=== PATIENT | female | born 1990 | race Caucasian/White ===

== ENCOUNTER 2020-01-14 14:03 | Emergency (ER) | payer OTHER, SELFPAY ==
--- NOTE | 2020-01-14 14:07 | CTR_ITS ---
PROCEDURE INFORMATION: Exam: CT Abdomen And Pelvis With Contrast Exam date and time: 01/14/2020 4:25 PM Age: 29 years old Clinical indication: Abdominal pain; Localized; Right upper quadrant (ruq); Patient HX: Ruq pain w n/v/d; Additional info: Abd pain TECHNIQUE: Imaging protocol: Computed tomography of the abdomen and pelvis with intravenous contrast. Radiation optimization: All CT scans at this facility use at least one of these dose optimization techniques: automated exposure control; mA and/or kV adjustment per patient size (includes targeted exams where dose is matched to clinical indication); or iterative reconstruction. Contrast material: OMNI 300; Contrast volume: 95 ml; Contrast route: INTRAVENOUS (IV); COMPARISON: No relevant prior studies available. RADIATION DOSE METRICS: Total DLP (mGy-cm): 1082.09 FINDINGS: Lungs: There are least 6 small noncalcified pulmonary nodules at the lung bases mostly measuring around 5 mm size and the largest is approximately 8 mm. If patient does not have known cancer, follow up should be based on clinical information because of the low risk of cancer in this age group. (Lida et al., Fleischner Society, 2017) Liver: There is no focal abnormality within the liver. Gallbladder and bile ducts: The gallbladder is normal. Pancreas: The pancreas is normal. Spleen: The spleen is normal. Adrenals: The adrenal glands are normal. Kidneys and ureters: There is mild right hydronephrosis. There is perinephric stranding around the right kidney and proximal right ureter. There is mild right hydroureter. There is some focal mucosal enhancement in the mid right ureter one could not exclude some focal ureteritis or urinary tract infection. Correlation with clinical findings is suggested. There is a 5 mm sized stone in the distal right ureter. This measures approximately 500 Hounsfield units and may be visible on the optoelectronic technician image. The left kidney is normal. There is no evidence of left hydronephrosis. Stomach and bowel: Unremarkable. No obstruction. No mucosal thickening. Appendix: A normal appendix is identified. Intraperitoneal space: Unremarkable. No free air. No significant fluid collection. Vasculature: Unremarkable. No abdominal aortic aneurysm. Lymph nodes: Unremarkable. No enlarged lymph nodes. Bladder: Unremarkable as visualized. Reproductive: Unremarkable as visualized. Bones/joints: Unremarkable. No acute fracture. Soft tissues: Unremarkable. CT/CT abdomen pelvis w con* [id number] IMPRESSION: 1. 5 mm size obstructing stone in the distal right ureter. 2. Urinary tract infection cannot be excluded. Radiation Dose CTDIVOL = (mGy): DLP = 1082.09 (mGy-cm)
[2020-01-14 14:19] VITALS: BP 106/73; PULSE 76; RESP 17; TEMP 37; O2SAT 99; BMI 32.9
--- NOTE | 2020-01-14 14:58 | W.ED.ABDPA2 ---
HPI - Abdominal Pain General: Chief Complaint: Abdominal Pain Stated Complaint: abd pain Time Seen by Provider: 01/14/20 14:53 History of Present Illness: HPI narrative: 29-year-old female brought to the emergency room from her doctor's office. She was seen earlier today and the doctors of the been trying to arrange for a CT as an outpatient were not able to get it approved she has worsening abdominal pain in the right lower quadrant. She had an elevated white count of 16,000. She is currently on her period itself towards the end of her. She has not had any dysuria urgency or frequency no right upper quadrant pain she has had nephrolithiasis in the past but states this feels different and it does not radiate down into her groin it began earlier today in the right lower quadrant is pretty much stayed in the same place the whole time. She has a history of chronic constipation but states this feels different. MD elicited complaint: abdominal pain Pertinent past history: constipation and kidney stones Onset (ago): hour(s) Pain Consistency: constant Location: RLQ Severity: moderate Quality: cramping Associated Symptoms: Denies bloating, chills, coffee ground emesis, constipation, diarrhea, dysuria, fever(s), hematochezia, hematemesis, melena, nausea and vomiting Review of Systems Const: Denies: fever(s), chills, body aches, change in appetite, fatigue or malaise ENMT: Denies: throat pain, ear or mastoid pain, nasal discharge or nasal congestion Card: Denies: chest pain, edema, dyspnea on exertion or orthopnea Resp: Denies: dyspnea, productive cough or non-productive cough GI: Denies: abdominal pain, nausea, vomiting, hematemesis, coffee ground emesis, diarrhea, constipation, bloating, hematochezia or melena : Denies: flank pain, difficulty voiding, dysuria, urinary frequency or urinary urgency Skin/Breast: Denies: rash or pruritus PFSH ED PFSH: Medical History (Updated 01/14/20 @ 17:48 by Ankit Castano DO) Constipation Migraines Nephrolithiasis Surgical History (Updated 01/14/20 @ 15:28 by Ankit Castano DO) No significant past surgical history Physical Exam Const: COMMON NORMALS: no acute distress GENERAL APPEARANCE: cooperative and comfortable ORIENTATION/CONSCIOUSNESS: Yes awake, Yes oriented to person, Yes oriented to place and Yes oriented to time HENMT: COMMON NORMALS: normocephalic, atraumatic, hearing grossly normal bilaterally, external ears normal, EAC's normal, TM's normal bilaterally, Normal nasal mucous membranes and turbinates present, moist oral mucous membranes and oropharynx normal HEAD & SCALP: normocephalic and atraumatic NOSE: Normal nasal mucous membranes and turbinates present EXTERNAL EAR: Yes external ears normal EXTERNAL AUDITORY CANAL: EAC's normal TYMPANIC MEMBRANE: TM's normal bilaterally Eye: COMMON NORMALS: Equal, round and reactive pupils present, EOMs intact bilaterally, conjunctivae normal and no scleral icterus CONJUNCTIVA: Yes conjunctivae normal PUPIL: Yes Equal, round and reactive pupils present Neck/C-Spine: COMMON NORMALS: full ROM, no lymphadenopathy, supple and no JVD Lymph: LYMPHATIC: no lymphadenopathy noted and no lymphedema noted Resp: COMMON NORMALS: normal respiratory effort, No retractions, No use of accessory muscles and clear to auscultation bilaterally AUSCULTATION: clear to auscultation bilaterally Cardio: COMMON NORMALS: no JVD, regular rate, regular rhythm and No murmurs present (Cardio) RATE: regular rate RHYTHM: regular rhythm GI: COMMON NORMALS: Soft to palpation and No hepatosplenomegaly present AUSCULTATION: Yes normoactive bowel sounds PALPATION: Yes Soft to palpation, No Tenderness to palpation present (GI), No Guarding due to palpation present (GI) and Yes No hepatosplenomegaly present Extremity: COMMON NORMALS: normal to inspection, capillary refill normal, no clubbing, cyanosis or edema, no calf tenderness and no pedal edema Neuro: SENSORIUM/ORIENTATION: Yes oriented to person, Yes oriented to place and Yes oriented to time Skin: COMMON NORMALS: no rashes or lesions noted GENERAL SKIN EXAM: no rashes or lesions noted Course Vital Signs: Vital signs: Vital Signs Temperature 98.6 F 01/14/20 14:19 Pulse Rate 76 01/14/20 14:19 Respiratory Rate 18 01/14/20 15:34 Blood Pressure 106/73 01/14/20 14:19 Pulse Oximetry 99 01/14/20 14:19 MDM - Abdominal Pain MDM Narrative: Medical decision making narrative: 5 mm right UVJ stone. Strain urine, follow-up with Dr. Cowart. Tamsulosin hydrocodone Zofran PRN if pain becomes controllable return. Discussed results with the patient she is sitting comfortably in the room without any difficulty now Case management will call to follow-up appointment with Dr. Cowart. Lab Data: Labs: Lab Results 01/14/20 01/14/20 01/14/20 Range/Units 14:55 15:10 15:10 Sodium 143 (136-145) mmol/L Potassium 3.5 (3.5-5.1) mmol/L Chloride 110 H (98-107) mmol/L Carbon Dioxide 23 (22-29) mmol/L Anion Gap 13.5 (5-19) BUN 16 (6-20) mg/dL Creatinine 0.8 (0.5-0.9) mg/dL GFR Calculation 83.7 L (90-130) mL/min Glucose 96 (65-115) mg/dL Calculated Osmolal ity 292 (285-295) mOsm/k g Calcium 9.0 (8.5-10.5) mg/dL Total Bilirubin 0.3 (0.15-1.2) mg/dL AST 12 (0-32) U/L ALT 7 (0-33) U/L Alkaline Phosphata se 63 (35-105) IU/L Total Protein 7.1 (6.6-8.7) g/dL Albumin 4.3 (3.5-5.2) g/dL Globulin 2.8 (1.3-4.6) g/dL Lipase 30 (13-60) U/L HCG, Qual Negative (Negative) Urine Color Mikala (Yellow) Urine Appearance Hazy A (CLEAR) Urine pH 5 (5-7) Ur Specific Gravit y 1.020 (1.005-1.030) Urine Protein Neg (Negative) Urine Glucose (UA) Norm (Normal) Urine Ketones Negative (Negative) Urine Blood 3+ H (Negative) Urine Nitrate Positive H (Negative) Urine Bilirubin Neg (NEGATIVE) Urine Urobilinogen Norm (Negative) mg/dL Ur Leukocyte Alysa ase 1+ H (Negative) Urine RBC 25-40 H (0-2) /hpf Urine WBC 15-25 H (0-5) /hpf Ur Squamous Epith Cells 5-10 H (0-5) Amorphous Sediment Not Reportable Urine Bacteria 4+ H (NONE) Discharge Plan Discharge Patient Disposition: Home, Self-Care Clinical Impression: Calculus of kidney Condition: Stable Prescriptions: New hydrocodone-acetaminophen 5-325 mg tablet 1 tab PO Q6H PRN (Reason: pain) Qty: 20 RF: 0 Zofran 4 mg tablet 4 mg PO Q6H PRN (Reason: nausea and vomiting) Qty: 20 RF: 0 tamsulosin 0.4 mg capsule 0.4 mg PO DAILY Qty: 14 RF: 0 No Action ibuprofen 800 mg tablet 800 mg PO TID PRN (Reason: Pain) RF: 0 prednisone 20 mg tablet 20 mg PO DAILY RF: 0 clonazepam 0.5 mg tablet 0.5 mg PO BID PRN (Reason: Anxiety) RF: 0 triamcinolone acetonide 0.1 % cream See Rx Instructions .ROUTE .COMPLEX RF: 0 topiramate 200 mg tablet 200 mg PO BID RF: 0 Discharge Orders: Discharge Order (Routine); Ordered 01/14/20 Ordered By: Ankit Castano Referrals: Herb Cowart MD [Physician] - (5 mm right UVJ stone) Discharge Diet: Advance as tolerated Discharge Activity: Resume usual activity Activity Restrictions/Additional Instructions: Strain urine to collect stone return to the lab if collected. Case management will call for follow-up with Dr. Cowart for stone management. Coding Level of Care Code ED Plant Culture Manager for [facility] Fwd Exam Comprehensive
[2020-01-14 15:08] VITALS: RESP 18
[2020-01-14] MEDS: ondansetron 2 mg/ML SDV 2 mL 4 MG IVP (15:33)
[2020-01-14 15:34] VITALS: RESP 18
[2020-01-14] MEDS: morphine 4 mg/mL SDV 1 mL IVP (15:34)
[2020-01-14 15:35] LABS: Alanine Aminotransferase 7 U/L (0-33); Albumin Level 4.3 g/dL (3.5-5.2); Alkaline Phosphatase 63 IU/L (35-105); Anion Gap 13.5 (5-19); Aspartate Amino Transferase 12 U/L (0-32); Blood Urea Nitrogen 16 mg/dL (6-20); Carbon Dioxide 23 mmol/L (22-29); Chloride 110 mmol/L (98-107); Globulin 2.8 g/dL (1.3-4.6); Glomerular Filtration Rate 83.7 mL/min (90-130); Glucose 96 mg/dL (65-115); Lipase 30 U/L (13-60); Osmolality Calculated 292 mOsm/kg (285-295); Potassium 3.5 mmol/L (3.5-5.1); Sodium 143 mmol/L (136-145); Total Bilirubin 0.3 mg/dL (0.15-1.2); Total Protein 7.1 g/dL (6.6-8.7)
[2020-01-14] MEDS: sodium chloride 0.9% 1,000 ML 999 ML IV (15:35)
[2020-01-14 15:41] LABS: HCG Qualitative Urine. Negative (Negative)
[2020-01-14 15:43] LABS: Add Urine Microscopic? YES; Bilirubin Urine Neg (NEGATIVE); Blood Urine 3+ (Negative); Glucose Urine UA Norm (Normal); Ketones Urine Negative (Negative); Leukocyte Esterase Urine 1+ (Negative); Nitrate Urine Positive (Negative); Protein Urine Neg (Negative); Urine Appearance Hazy (CLEAR); Urine Color Amber (Yellow); Urobilinogen Urine Norm (Negative); pH Urine 5 (5-7)
[2020-01-14 15:44] LABS: Add Urine Culture? Yes; Bacteria Urine 4+; RBC Urine 25-40 /hpf (0-2); WBC Urine 15-25 /hpf (0-5)
[2020-01-14 16:08] VITALS: RESP 18
[2020-01-14] MEDS: iohexol 300 mg/mL 100 mL Btl IV (16:35)
[2020-01-14 17:00] VITALS: RESP 18
[2020-01-14 18:00] VITALS: RESP 18
--- NOTE | 2020-01-15 12:28 | DCPLANNER ---
manager library had message to schedule a follow up appointment for patient with Dr. Cowart. manager library called the office of Dr. Cowart, spoke with Sandra, gave clinic patients information. manager library was told that patients information would be printed and reviewed. Clinic will call patient with appointment information.
--- NOTE | 2020-01-17 08:36 | DCPLANNER ---
Patient had a follow up appointment scheduled for 01.16.20, patient did attend the appointment.
== END 2020-01-14 18:12 | disposition home or self-care (01) ==
PROVIDERS: Emergency Medicine; Emergency Provider Family Medicine; PCP Family Medicine
DX: N20.0 Calculus of kidney (principal)
CPT/HCPCS: 12345; 36415; 74177; 80053; 81001; 81003; 81025; 83690; 87077; 87086; 87186; 96360; 96361; 96374; 96375; 99283; J2270; J2405; J7030; Q9967

== ENCOUNTER 2020-01-16 15:13 | Outpatient (CLI) | payer OTHER, SELFPAY ==
--- NOTE | 2020-01-16 15:25 | XRR_ITS ---
PROCEDURE INFORMATION: Exam: XR Abdomen, 1 View Exam date and time: 01/16/2020 3:25 PM Age: 29 years old Clinical indication: Condition or disease; Kidney or ureter condition; Calculus (stone) in ureter; Additional info: Stone in right ureter f/u TECHNIQUE: Imaging protocol: XR of the abdomen. Views: Frontal supine view of the abdomen. 1 View. COMPARISON: CT abdomen pelvis w con* [id number] 01/14/2020 4:26 PM FINDINGS: Gastrointestinal tract: Normal. No bowel dilation. There is moderate colonic fecal stasis involving the transverse and proximal descending colon. The exam does not show bowel obstruction or fecal impaction. Bones/joints: Unremarkable. XR/XR KUB [id number] IMPRESSION: No acute GI abnormality.
== END 2020-01-16 15:14 | disposition home or self-care (01) ==
LOC: RAD 15:17
PROVIDERS: PCP Family Medicine; Visit Provider Urology
DX: N20.1 Calculus of ureter (principal)
CPT/HCPCS: 74018; 81001

== ENCOUNTER 2020-01-16 16:37 | Inpatient (IN) | payer OTHER, SELFPAY ==
--- NOTE | 2020-01-16 16:38 | P.HP_ITS ---
Providers/Chief Complaint Primary Care Provider: Anthony Mendez MD Chief Complaint: KIDNEY STONE History of Present Illness Enriqueta Gardiner is a very pleasant 29 year old female who was recently diagnosed with a RIGHT ureteral calculus near the entry into the true pelvis. Obstructive changes were noted. Initially her symptoms were more consistent with appendicitis but on CT scan findings as above. Today she began having more irritative voiding symptoms suspicious for UTI. Has had documented pyuria. Not a frequent flyer when it comes to urinary tract infections. She was afebrile in the clinic today but reports a temperature of 100.2 earlier. Has reported some chills and sweats. Blood pressure was stable today in clinic I recommended admission with IV antibiotics and if remains hemodynamically stable with no evidence of progression to septic complications attempt at stone removal tomorrow. If she shows signs of deterioration and stent placement emergently tonight. She will be placed n.p.o. Review of Systems Const: Reports: chills, fatigue and malaise Eyes: Reports: change in vision and blurry vision ENMT: Denies: throat pain or odynophagia Card: Denies: chest pain or palpitations Resp: Denies: dyspnea, productive cough, non-productive cough or wheezing GI: Reports: abdominal pain (Right lower quadrant), nausea and vomiting : Denies: flank pain Musc: Denies: extremity swelling or joint warmth Skin/Breast: Denies: rash, pruritus or erythema Neuro: Reports: other (Migraine headache); Denies: confusion, Slurred speech present, difficulty communicating thoughts or seizure-like activity Psych: Denies: irritability or memory loss Endo: Denies: polydipsia Mirza/Lymph: Denies: easy bruising or easy bleeding All/Imm: Denies: urticaria or throat swelling Medications/Allergies Home Medications Medication Instructions Recorded Confirmed Last Taken Type clonazepam 0.5 mg PO BID PRN 01/14/20 01/16/20 Unknown History hydrocodone-acetaminophen 1 tab PO Q6H PRN #20 tab 01/14/20 01/16/20 Unknown Rx ibuprofen 800 mg PO TID PRN 01/14/20 01/16/20 01/14/20 History ondansetron HCl [Zofran] 4 mg PO Q6H PRN #20 tab 01/14/20 01/16/20 Unknown Rx tamsulosin 0.4 mg PO DAILY #14 cap 01/14/20 01/16/20 Unknown Rx topiramate 200 mg PO BID 01/14/20 01/16/20 01/14/20 History triamcinolone acetonide See Rx Instructions .ROUTE .COMPLEX 01/14/20 01/16/20 01/13/20 History Allergies Allergy/AdvReac Type Severity Reaction Status Date / Time No Known Allergies Allergy Verified 01/16/20 15:59 PFSH Acute PFSH: Medical History Constipation Migraines Nephrolithiasis Right distal ureteral calculus Surgical History No significant past surgical history Social History Smoking and tobacco status: never smoked Alcohol intake: never Marital status: Single Current occupational status: employed History of recent travel: No Physical Exam Const: COMMON NORMALS: alert and well nourished GENERAL APPEARANCE: well kempt and well developed ORIENTATION/CONSCIOUSNESS: not confused HENMT: HEAD & SCALP: normocephalic and atraumatic Eye: COMMON NORMALS: conjunctivae normal and no scleral icterus Neck/C-Spine: COMMON NORMALS: full ROM GENERAL: Yes normal visual i nspection Resp: COMMON NORMALS: normal respiratory effort EFFORT & INSPECTION: No labored and No Actively coughing Cardio: COMMON NORMALS: regular rate, regular rhythm and No murmurs present (Cardio) RATE: tachycardic BRUITS: no carotid bruits PERIPHERAL PULSES: other (No edema) GI: INSPECTION: Yes normal to inspection PALPATION: Yes Tenderness to palpation present (GI) : OTHER: Bladder nondistended Extremity: COMMON NORMALS: no clubbing, cyanosis or edema Neuro: COMMON NORMALS: no focal motor deficits SENSORIUM/ORIENTATION: Yes alert Psych: COMMON NORMALS: mental status grossly normal APPEARANCE: Yes grossly normal and Yes well kempt ATTITUDE: Yes calm and Yes engaged Skin: COMMON NORMALS: no rashes or lesions noted and no jaundice A&P Assessment and plan (1) Right distal ureteral calculus: 8+ millimeter right distal ureteral stone with typical obstructive changes on CT scan. Has made progress since initial CT scan on 01/14/2020. Complicated by cystitis but no evidence of septic concerns at evaluation. Admitting for IV antibiotics, rehydration, stenting emergently if progression of infectious symptoms or consideration of intervention as attempt at definitive treatment tomorrow if clinical picture continues to improve. Status: Acute (2) Renal colic on right side: Status: Acute (3) Acute cystitis without hematuria: Significant pyuria noted on 01/14/2020 but improved at reexamination on 01/16/2020. We will place on IV antibiotics for close observation rehydrate etc. Status: Acute (4) Migraines: Status: Acute Attestations Medical Necessity Statement*: Patient has severe symptomatology related to a right distal ureteral stone is not likely to pass spontaneously. Complicated further by acute cystitis but no evidence of sepsis. Admit for IV antibiotics, rehydration, symptomatic control and if doing well from an infection perspective attempt at definitive therapy. Coding Level of Care Code Acute Brewing Director for [facility] Fwd Diagnoses Right distal ureteral calculus N20.1 Renal colic on right side N23 Acute cystitis without hematuria N30.00 Migraines G43.909
[2020-01-16 16:48] VITALS: BP 114/74; PULSE 109; RESP 16; TEMP 36.9; O2SAT 97; BMI 32.9
--- NOTE | 2020-01-16 17:00 | W.ED.FEMALGU ---
HPI - Female Genitourinary General: Chief complaint: Urogenital-Female Stated complaint: KIDNEY STONE Time Seen by Provider: 01/16/20 16:59 History of Present Illness: HPI Narrative: 29-year-old female seen earlier this week for a nephrolithiasis. She also has a cystitis being readmitted for IV antibiotics. She is already seen Dr. Cowart. elicited complaint: dysuria and UTI Pertinent past history: other (Nephrolithiasis) Onset (ago): day(s) Severity: moderate Female Urogenital Radiation: R Flank Quality of pain: sharp Consistency: constant Urinary symptoms: Dysuria, Flank Pain, Frequency and Urgency Exacerbating factors: urination Relieving factors: none Associated symptoms: Reports nausea Review of Systems Const: Denies: fever(s), chills, body aches, change in appetite, fatigue or malaise ENMT: Denies: throat pain, ear or mastoid pain, nasal discharge or nasal congestion Card: Denies: chest pain, edema, dyspnea on exertion or orthopnea Resp: Denies: dyspnea, productive cough or non-productive cough GI: Reports: nausea : Reports: flank pain, dysuria, urinary frequency and urinary urgency; Denies: difficulty voiding Skin/Breast: Denies: rash or pruritus PFSH ED PFSH: Medical History (Updated 01/25/20 @ 10:24 by Herb Cowart MD) Acute cystitis without hematuria Constipation Migraines Nephrolithiasis Right distal ureteral calculus Urolithiasis Surgical History No significant past surgical history Social History Smoking and tobacco status: never smoked Alcohol intake: never Marital status: Single Current occupational status: employed History of recent travel: No Physical Exam Const: COMMON NORMALS: no acute distress GENERAL APPEARANCE: cooperative and comfortable ORIENTATION/CONSCIOUSNESS: Yes awake, Yes oriented to person, Yes oriented to place and Yes oriented to time HENMT: COMMON NORMALS: normocephalic, atraumatic, EAC's normal, TM's normal bilaterally and Normal nasal mucous membranes and turbinates present HEAD & SCALP: normocephalic and atraumatic NOSE: Normal nasal mucous membranes and turbinates present EXTERNAL AUDITORY CANAL: EAC's normal TYMPANIC MEMBRANE: TM's normal bilaterally Eye: COMMON NORMALS: Equal, round and reactive pupils present, EOMs intact bilaterally, conjunctivae normal and no scleral icterus CONJUNCTIVA: Yes conjunctivae normal PUPIL: Yes Equal, round and reactive pupils present Neck/C-Spine: COMMON NORMALS: full ROM, no lymphadenopathy, supple and no JVD Lymph: LYMPHATIC: no lymphadenopathy noted and no lymphedema noted Resp: COMMON NORMALS: normal respiratory effort, No retractions, No use of accessory muscles and clear to auscultation bilaterally AUSCULTATION: clear to auscultation bilaterally Cardio: COMMON NORMALS: no JVD, regular rate, regular rhythm and No murmurs present (Cardio) RATE: regular rate RHYTHM: regular rhythm GI: COMMON NORMALS: Soft to palpation and No hepatosplenomegaly present AUSCULTATION: Yes normoactive bowel sounds PALPATION: Yes Soft to palpation, Yes Tenderness to palpation present (GI) (Oddly tender suprapubic), No Guarding due to palpation present (GI) and Yes No hepatosplenomegaly present : COMMON NORMALS: Yes no CVA tenderness BLADDER/KIDNEY EXAM: Yes no CVA tenderness Back/Pelvis: COMMON NORMALS: no CVA tenderness Extremity: COMMON NORMALS: normal to inspection, capillary refill normal, no clubbing, cyanosis or edema, no calf tenderness and no pedal edema Neuro: SENSORIUM/ORIENTATION: Yes oriented to person, Yes oriented to place and Yes oriented to time Course Vital Signs: Vital signs: Vital Signs Temperature 98.3 F 01/18/20 17:29 Pulse Rate 92 01/18/20 17:29 Respiratory Rate 20 H 01/18/20 17:29 Blood Pressure 103/69 01/18/20 17:29 Pulse Oximetry 97 01/18/20 17:29 MDM - Female MDM Narrative: Medical decision making narrative: Patient denies being exposed anyone she knows of who is COVID positive. She has not had a significant cough or any respiratory symptoms I do not believe at this time she needs to be screened for COVID. We will go ahead and admit her per Dr. Cowart's orders she was given fluids antiemetics pain medications and initial dose of ceftriaxone in the emergency room to expedite care Discharge Plan Discharge Admit Provider: Herb Cowart Condition: Stable Discharge Orders: Discharge Order (Routine); Ordered 01/18/20 Ordered By: Herb Cowart Discharge Activity: Increase activity as tolerated Discharge Date/Time: 01/16/20 18:14 Coding Level of Care Code ED Technical Administrative Assistant for [facility] Fwd Exam Comprehensive
[2020-01-16 17:21] LABS: Basophils % 0.2 %; Hematocrit 38.4 % (37.0-47.0); Hemoglobin 13.2 g/dL (11.5-15.3); Lymphocytes # 0.7 10^3/uL (0.8-4.8); Lymphocytes % 6.9 %; Mean Corpuscular HGB Conc 34.4 g/dL (30.0-36.0); Mean Corpuscular Hemoglobin 30.3 pg (28.0-34.0); Mean Corpuscular Volume 88.1 fL (81-99); Mean Platelet Volume 10.6 fL (7.4-10.4); Monocytes # 0.5 10^3/uL (0.2-0.9); Monocytes % 4.3 %; Neutrophils # 9.42 10^3/uL (1.8-7.7); Neutrophils % 88.3 %; Nucleated Red Blood Cells % 0 %; Platelet Count 156 10^3/cmm (130-400); Red Blood Count 4.36 10^6/uL (4.1-5.3); Red Cell Distribution Width 11.4 % (12.1-15.1); White Blood Count 10.7 10^3/uL (4.0-10.0)
[2020-01-16 17:24] VITALS: RESP 18
[2020-01-16] MEDS: ondansetron 2 mg/ML SDV 2 mL 4 MG IVP (17:24)
[2020-01-16] MEDS: morphine 4 mg/mL SDV 1 mL IVP (17:24)
[2020-01-16] MEDS: cefTRIAXone 1,000 MG in sodium chloride 0.9% (plus) 50 ML 100 MG IV ×2 (17:27→18:56)
[2020-01-16 17:43] LABS: Alanine Aminotransferase 9 U/L (0-33); Albumin Level 3.9 g/dL (3.5-5.2); Alkaline Phosphatase 60 IU/L (35-105); Anion Gap 15.5 (5-19); Aspartate Amino Transferase 14 U/L (0-32); Blood Urea Nitrogen 10 mg/dL (6-20); Calcium 8.7 mg/dL (8.5-10.5); Carbon Dioxide 19 mmol/L (22-29); Chloride 102 mmol/L (98-107); Globulin 3.4 g/dL (1.3-4.6); Glomerular Filtration Rate 64.7 mL/min (90-130); Glucose 112 mg/dL (65-115); Osmolality Calculated 273 mOsm/kg (285-295); Potassium 3.5 mmol/L (3.5-5.1); Sodium 133 mmol/L (136-145); Total Bilirubin 0.5 mg/dL (0.15-1.2); Total Protein 7.3 g/dL (6.6-8.7)
[2020-01-16 17:58] VITALS: BP 110/65; PULSE 99; RESP 18; O2SAT 97
[2020-01-16 18:06] VITALS: BP 125/80; PULSE 100; RESP 18; TEMP 37.9; O2SAT 97
[2020-01-16] MEDS: D5-NS 0.45% + KCL 20 mEq 20 MEQ/1,000 ML BAG 150 MEQ IV (18:56)
[2020-01-16 19:33] VITALS: BP 115/79; PULSE 89; RESP 20; TEMP 37.3; O2SAT 97
[2020-01-16 20:08] LABS: Lactic Sepsis W/Reflex 1.2 mmol/L (0.5-2.2)
[2020-01-16 20:10] LABS: Alanine Aminotransferase 9 U/L (0-33); Albumin Level 3.6 g/dL (3.5-5.2); Alkaline Phosphatase 54 IU/L (35-105); Anion Gap 14.3 (5-19); Aspartate Amino Transferase 13 U/L (0-32); Blood Urea Nitrogen 10 mg/dL (6-20); Calcium 8.2 mg/dL (8.5-10.5); Carbon Dioxide 20 mmol/L (22-29); Chloride 102 mmol/L (98-107); Globulin 3.1 g/dL (1.3-4.6); Glomerular Filtration Rate 83.7 mL/min (90-130); Glucose 108 mg/dL (65-115); Osmolality Calculated 273 mOsm/kg (285-295); Potassium 3.3 mmol/L (3.5-5.1); Sodium 133 mmol/L (136-145); Total Bilirubin 0.3 mg/dL (0.15-1.2); Total Protein 6.7 g/dL (6.6-8.7)
[2020-01-16 20:32] LABS: Basophils % 0.4 %; Hematocrit 35.7 % (37.0-47.0); Hemoglobin 12.2 g/dL (11.5-15.3); Lymphocytes # 0.8 10^3/uL (0.8-4.8); Lymphocytes % 9.6 %; Mean Corpuscular HGB Conc 34.2 g/dL (30.0-36.0); Mean Corpuscular Hemoglobin 30.4 pg (28.0-34.0); Mean Platelet Volume 11.1 fL (7.4-10.4); Monocytes # 0.4 10^3/uL (0.2-0.9); Monocytes % 5.1 %; Neutrophils # 7.25 10^3/uL (1.8-7.7); Neutrophils % 84.5 %; Nucleated Red Blood Cells % 0 %; Platelet Count 133 10^3/cmm (130-400); Red Blood Count 4.01 10^6/uL (4.1-5.3); Red Cell Distribution Width 11.6 % (12.1-15.1); White Blood Count 8.6 10^3/uL (4.0-10.0)
[2020-01-16] MEDS: ondansetron 4 MG Tablet PO (22:05)
[2020-01-16 23:27] VITALS: BP 110/74; PULSE 103; RESP 20; TEMP 38.7; O2SAT 95
[2020-01-17] VITALS (15 sets, daily range): BP systolic 91–121; BP diastolic 63–75; PULSE 71–107; RESP 14–20; TEMP 36.7–37.9; O2SAT 97–100
--- NOTE | 2020-01-17 | SCC_ITS ---
Procedure Done: 1. Cystoscopy, right: Ureteroscopy, laser lithotripsy with stone fragment removal and stent placement Implants: Right ureteral stent (7 Uzbek by 26 cm double-pigtail without string) 34.5 seconds of fluoroscopic guidance, for a cumulative dose of 5.91 mGy, was provided to Dr. Cowart by the radiology department. C-arm images of the abdomen were saved for the patient's permanent record. APPLED
[2020-01-17] MEDS: acetaminophen 500 mg Tablet PO (00:03)
[2020-01-17] MEDS: D5-NS 0.45% + KCL 20 mEq 20 MEQ/1,000 ML BAG 150 MEQ IV ×4 (01:40→20:18)
[2020-01-17 06:33] LABS: Basophils % 0.2 %; Eosinophils # 0.1 10^3/uL (0.0-0.8); Eosinophils % 0.9 %; Hematocrit 38.3 % (37.0-47.0); Hemoglobin 12.7 g/dL (11.5-15.3); Lymphocytes # 0.6 10^3/uL (0.8-4.8); Lymphocytes % 9.7 %; Mean Corpuscular HGB Conc 33.2 g/dL (30.0-36.0); Mean Corpuscular Hemoglobin 29.7 pg (28.0-34.0); Mean Corpuscular Volume 89.7 fL (81-99); Mean Platelet Volume 10.7 fL (7.4-10.4); Monocytes # 0.4 10^3/uL (0.2-0.9); Monocytes % 7.2 %; Neutrophils # 4.65 10^3/uL (1.8-7.7); Neutrophils % 81.6 %; Nucleated Red Blood Cells % 0 %; Platelet Count 135 10^3/cmm (130-400); Red Blood Count 4.27 10^6/uL (4.1-5.3); Red Cell Distribution Width 11.8 % (12.1-15.1); White Blood Count 5.7 10^3/uL (4.0-10.0)
[2020-01-17 06:42] LABS: Anion Gap 11.5 (5-19); Blood Urea Nitrogen 7 mg/dL (6-20); Calcium 8.3 mg/dL (8.5-10.5); Carbon Dioxide 21 mmol/L (22-29); Chloride 106 mmol/L (98-107); Glomerular Filtration Rate 83.7 mL/min (90-130); Glucose 115 mg/dL (65-115); Osmolality Calculated 277 mOsm/kg (285-295); Potassium 3.5 mmol/L (3.5-5.1); Sodium 135 mmol/L (136-145)
[2020-01-17] MEDS: topiramate 100 mg Tablet 200 MG PO ×2 (07:38→17:40)
[2020-01-17] MEDS: ondansetron 4 MG Tablet PO (07:38)
--- NOTE | 2020-01-17 07:47 | PM.PN ---
Subjective Subjective: Interval history: Hospital day #2 Still feeling pretty cruddy. Weak, some urgency and frequency, but no severe pain. T-max was 101.6 last night. She did have more tachycardia last night but this morning that has improved. Still with nausea Has received 2 g of Rocephin so far. At this point will still leave on the table the option of going after the stone versus just stenting. We will see how she is doing clinically at the time of procedure today around noon. Continue n.p.o. status. Consent for surgery. Informed consent obtained after explained the procedure in detail. Decision for surgery Medications: Reviewed: Yes Vitals/I&O/Wt Last Vital Signs Temp 98.1 F 01/17/20 06:19 Pulse 82 01/17/20 06:19 Resp 18 01/17/20 06:19 BP 106/72 01/17/20 06:19 Pulse Ox 99 01/17/20 06:19 01/16/20 01/17/20 01/17/20 22:59 06:59 14:59 Intake Total 1000 / 1000 897.5 / 897.5 Output Total 1000 / 1000 Balance 0 / 0 897.5 / 897.5 Weight last 48 hrs Weight 186 lb Physical Exam Const: COMMON NORMALS: no acute distress, alert and well nourished GENERAL APPEARANCE: cooperative, well kempt and well developed; not in distress and not anxious ORIENTATION/CONSCIOUSNESS: not confused Resp: COMMON NORMALS: normal respiratory effort EFFORT & INSPECTION: No labored and No Actively coughing Neuro: COMMON NORMALS: no focal motor deficits SENSORIUM/ORIENTATION: Yes alert Psych: COMMON NORMALS: mental status grossly normal APPEARANCE: Yes grossly normal and Yes well kempt ATTITUDE: Yes calm and Yes engaged Data : 01/17/20 06:20 01/17/20 06:20 Micro: Microbiology 01/16/20 17:12 Blood Culture - Preliminary Blood SPECIMEN COLLECTED 01/16/20 17:12 Blood Culture - Preliminary Blood SPECIMEN COLLECTED A&P Assessment and plan (1) Right distal ureteral calculus: No stone passage. Plan for either stent placement or definitive attempt at the stone this afternoon. Status: Acute (2) Acute cystitis without hematuria: Status: Acute Attestations Medical Necessity Statement*: Still symptomatic with concern regarding infection and obstruction. Plan for surgical intervention today either stent alone or endoscopy depending upon her clinical status at the time. Coding Level of Care Code Acute Overnight Caregiver for [facility] Fwd Diagnoses Right distal ureteral calculus N20.1 Acute cystitis without hematuria N30.00
--- NOTE | 2020-01-17 09:45 | PC.CHAP ---
Pastoral Care Encounter/Spiritual Assessment Type of Contact [] Declined green building energy engineer visit [] Patient/Family/Request visit [] Outpatient visit [] Follow-up visit [] Physician referral [] Code/Alert [x] Routine visit [] Staff referral [] Actively dying [] Patient sleeping [] Family support [] [] Out of room [] Palliative care [] [] Receiving care in room [] Pre-surgical visit [] Trauma [] Long length of stay [] ICU visit [] Other: Relational/Emotional Strength [x] Patient feels connected with others/family/visitors/staff [] Distress [] Loneliness/isolation [] Abandonment Spirituality of Patient [x] Person of Lucila [x] Attends Religion of their Lucila [x] Believes in Prayer [] Reads Bible or Congregational materials [] There are Spiritual issues to be addressed Legal Archivist Interventions [x] Prayer [x] Active listening [x] Non-anxious presence [x] Spiritual/emotional support [] Crisis/trauma care [] Spiritual counseling [] Bereavement support [] Provided bereavement packet [] Provided Bible/devotional materials [] Provided toy/stuffed animal, coloring book to patient or family member [] Provided Communion [] Anointing/[place] [] Salvation [x] Completed spiritual assessment [] Other: Impact on Illness or Injury [] Angry [] Fearful [] Anxious [] Often cries [] Exhaustion [] Unable to work [] Unable to attend orthodoxy [] Unable to walk/stand [] Unable to read [] Unable to drive [] Unable to eat/drink [] Unable to sleep [] Unable to be with family [] Patient intubated [x] Other: Summary Patient attends [employer], professed her lucila in [employer] and is engaged to be in [place]. Time spent with patient 5 minutes
--- NOTE | 2020-01-17 11:32 | P.ANESASSM_ITS ---
Pre-Anesthetic Assessment Pre-Anesthetic Assessment: Height/Weight: Height 1.6 m Weight 84.368 kg Temp Pulse Resp BP Pulse Ox 100.2 F H 107 H 18 121/71 100 01/17/20 11:28 01/17/20 11:28 01/17/20 11:28 01/17/20 11:28 01/17/20 11:28 Proposed Procedure: Operation Date: 01/17/20 12:00 Proposed Procedures p Cystoscopy(Not Applicable) - Herb Cowart MD s Laser Lithotripsy(Not Applicable) - Herb Cowart MD s Ureteral Stent Placement(Right) - Herb Cowart MD s Flexible Ureteroscopy(Not Applicable) - Herb Cowart MD Last intake: Intake Last Liquid Date 01/16/20 Last Liquid Time 14:00 Last Solid Date 01/13/20 Last Solid Time 15:00 Social: Social History: No alcohol and No tobacco Exam: Pre-Anes Outpt Exam: alert, oriented x 3, clear to auscultation bilaterally and regular rate & rhythm Airway: Submandibular: WNL Cervical ROM: WNL MP: 2 Dentition: Other (tongue ring, teeth ok) History/ROS: No significant history except as noted Pulmonary: Pulmonary: None reported CV/HEM: CV/HEM: None reported : Comments: stones Hepatic: Hepatic: None reported GI: GI: None reported Metabolic: Metabolic: None reported Musc/skel: Musc/skel: None reported Neuropsych: Neuropsych: FERRARO Anesthetic Plan: ASA status: 2 Anesthesia: Anesthesia Evaluation, General and MAC Risk of > 500 ml blood loss (7ml/kg in children): No Meds/Allergies Current Medications: Current Medications Generic Name Dose Route Start Last Admin Trade Name Freq PRN Reason Stop Dose Admin Acetaminophen 500 mg 01/16/20 23:47 01/17/20 00:03 Tylenol PO 500 mg Q6H PRN Administration MILD PAIN OR INCR EASE TEMP Potassium Chloride /Dextrose/Sod Cl 20 meq in 1,000 m ls @ 150 mls/hr 01/16/20 18:30 01/17/20 07:39 D5-Ns 0.45% + Layton l 20 Meq IV 150 mls/hr .Q6H40M JANESSA Administration Ondansetron HCl 4 mg 01/16/20 18:06 01/17/20 07:38 Zofran PO 4 mg Q8H PRN Administration NAUSEA Topiramate 200 mg 01/17/20 09:00 01/17/20 07:38 Topamax PO 200 mg BID JANESSA Administration PFSH Anesthesia PFSH: Medical History Constipation Migraines Nephrolithiasis Right distal ureteral calculus Surgical History No significant past surgical history Social History Smoking and tobacco status: never smoked Alcohol intake: never Marital status: Single Current occupational status: employed History of recent travel: No Data Anesthesia CBC & Chem 7: 01/17/20 06:20 01/17/20 06:20 Other Labs: Laboratory Results - last 48 hr 01/16/20 01/16/20 01/16/20 17:12 17:12 19:43 WBC 10.7 H RBC 4.36 Hgb 13.2 Hct 38.4 MCV 88.1 MCH 30.3 MCHC 34.4 RDW 11.4 L Plt Count 156 MPV 10.6 H Neut % (Auto) 88.3 Lymph % (Auto) 6.9 [place] % (Auto) 4.3 Eos % (Auto) 0.0 Baso % (Auto) 0.2 Neut # (Auto) 9.42 H Lymph # (Auto) 0.7 L [place] # (Auto) 0.5 Eos # (Auto) 0.0 Baso # (Auto) 0.0 Nucleated RBC % (auto) 0 Nucleated RBCs # 0.0 Sodium 133 L 133 L Potassium 3.5 3.3 L Chloride 102 102 Carbon Dioxide 19 L 20 L Anion Gap 15.5 14.3 BUN 10 10 Creatinine 1.0 H 0.8 GFR Calculation 64.7 L 83.7 L Glucose 112 108 Calculated Osmolality 273 L 273 L Lactic Acid Calcium 8.7 8.2 L Total Bilirubin 0.5 0.3 AST 14 13 ALT 9 9 Alkaline Phosphatase 60 54 Total Protein 7.3 6.7 Albumin 3.9 3.6 Globulin 3.4 3.1 01/16/20 01/16/20 01/17/20 19:43 19:43 06:20 WBC 8.6 5.7 RBC 4.01 L 4.27 Hgb 12.2 12.7 Hct 35.7 L 38.3 MCV 89.0 89.7 MCH 30.4 29.7 MCHC 34.2 33.2 RDW 11.6 L 11.8 L Plt Count 133 135 MPV 11.1 H 10.7 H Neut % (Auto) 84.5 81.6 Lymph % (Auto) 9.6 9.7 [place] % (Auto) 5.1 7.2 Eos % (Auto) 0.0 0.9 Baso % (Auto) 0.4 0.2 Neut # (Auto) 7.25 4.65 Lymph # (Auto) 0.8 0.6 L [place] # (Auto) 0.4 0.4 Eos # (Auto) 0.0 0.1 Baso # (Auto) 0.0 0.0 Nucleated RBC % (auto) 0 0 Nucleated RBCs # 0.0 0.0 Sodium Potassium Chloride Carbon Dioxide Anion Gap BUN Creatinine GFR Calculation Glucose Calculated Osmolality Lactic Acid 1.2 Calcium Total Bilirubin AST ALT Alkaline Phosphatase Total Protein Albumin Globulin 01/17/20 06:20 WBC RBC Hgb Hct MCV MCH MCHC RDW Plt Count MPV Neut % (Auto) Lymph % (Auto) [place] % (Auto) Eos % (Auto) Baso % (Auto) Neut # (Auto) Lymph # (Auto) [place] # (Auto) Eos # (Auto) Baso # (Auto) Nucleated RBC % (auto) Nucleated RBCs # Sodium 135 L Potassium 3.5 Chloride 106 Carbon Dioxide 21 L Anion Gap 11.5 BUN 7 Creatinine 0.8 GFR Calculation 83.7 L Glucose 115 Calculated Osmolality 277 L Lactic Acid Calcium 8.3 L Total Bilirubin AST ALT Alkaline Phosphatase Total Protein Albumin Globulin Micro: Microbiology 01/16/20 17:12 Blood Culture - Preliminary Blood SPECIMEN COLLECTED 01/16/20 17:12 Blood Culture - Preliminary Blood SPECIMEN COLLECTED Cardiac Studies: No Data to Display
--- NOTE | 2020-01-17 12:06 | P.OP_ITS ---
Operative Report Date of procedure: January 17, 2020 Pre-op Diagnosis: Distal ureteral stone (8+ millimeters) and acute cystitis Post-op diagnosis: same Procedure Done: 1. Cystoscopy, right: Ureteroscopy, laser lithotripsy with stone fragment removal and stent placement Implants: Right ureteral stent (7 Emirati by 26 cm double-pigtail without string) Specimens removed/disposition: Stone fragment Pathology: Stone fragments Surgeon: Sofya Anesthesia: General Estimated blood loss: Minimal Urine output: Not measured Complications: None Brief History: Enriqueta is a very pleasant 29-year-old white female who I evaluated for the first time yesterday after an ER visit with diagnosis of a right distal ureteral stone. The stone measured about 8+ millimeters in size with obstructive changes. As of yesterday's visit 2 days after the ER visit she demonstrated progression of the stone further distally about 2 or 3 inches. Was found to have a urinary tract infection but no evidence of sepsis. Because of difficulty controlling her symptoms she was admitted to the hospital for rehydration, IV antibiotics, and consideration for stenting or endoscopic treatment of the stone Procedure: After routine preoperative evaluation examination and obtaining of informed consent she was taken to the operating suite on 12/18/2019 where general anesthesia was administered without difficulty after appropriate timeout was performed, SCDs confirmed to be functioning, preoperative antibiotics administered, beta-ratna protocol confirmed. Prepped and draped in usual sterile fashion in dorsolithotomy position pain careful attention to avoiding pressure points 21 Emirati cystoscope with 30 degree lens was introduced into the urethral meatus and advanced into the bladder under videoscopy. No stone was seen. Fluoroscopic imaging showed the stone in the expected position. A flexible tip guidewire was then advanced up the right ureter bypassing the stone and curling in the area of the upper pole calyx. Reassessment of her hemodynamic status revealed: At that point it was decided to proceed with endoscopic treatment of the stone. The distal ureter was dilated with a 15 Emirati 4 cm balloon. A second guidewire was passed and a 24 cm ureteral access sheath was advanced over the working wire (the other wire was secured to the drapes as a safety wire) was to just below the level of the stone. The offset semirigid ureteroscope was then advanced through the sheath up to the stone which was fragment with 350 ?m holmium laser fiber into small pieces that were then withdrawn with graspers and baskets. Low flow irrigation was utilized as part of special attention to avoiding increasing upper urinary tract pressure. The cystoscope was then backloaded over the safety wire and a 7 Emirati by 26 cm double-pigtail stent was advanced over the guidewire through the cystoscope into appropriate position as confirmed via fluoroscopy and cystoscopy. The bladder was drained with a Andersen catheter and the procedure completed. PLANS: 1. Continue IV antibiotics 2. Maintain inpatient status until significant improvement in clinical symptoms.
--- NOTE | 2020-01-17 12:24 | SC_ITS ---
WS: [id number] C-ARM RADIOGRAPHS ABDOMEN; 2 IMAGES HISTORY: surgery COMPARISON: None available. Intraoperative imaging during RIGHT ureteral stent placement. SC/C-arm FL for Urology IMPRESSION: Intraoperative imaging during ureteral stent placement.
[2020-01-17] MEDS: iohexol 300 mg/mL 50 mL Btl (OR ONLY) XX (12:55)
--- NOTE | 2020-01-17 15:25 | PM.MISC ---
Miscellaneous Note Note: Postoperative check. Afebrile vital signs stable. Still has some nausea but overall feeling somewhat better. Reviewed the operative findings. Hopefully she is feeling well enough to marked for discharge.
[2020-01-17] MEDS: cefTRIAXone 2,000 MG in sodium chloride 0.9% (plus) 50 ML 100 MG IV (17:44)
--- NOTE | 2020-01-17 17:47 | PC.NURSE ---
URINATION - PATIENT ASSISTED TO RESTROOM BY CHROME WORKER, PATIENT STATES SHE SHARES A RESTROOM AND FORGOT TO HAVE HAT PLACED AND VOIDED IN TOILET. SHE STATES SHE A HAD LARGE VOID AND STATES SHE BELIEVES THERE WAS A PART OF A STONE IN THE TOILET . SHE DESCRIBES IT A DARK RIGID CHUNK. ABHI, GROUP ART SUPERVISOR
--- NOTE | 2020-01-17 18:06 | XRR_ITS ---
PROCEDURE INFORMATION: Exam: XR Abdomen, 1 View Exam date and time: 01/17/2020 7:31 AM Age: 29 years old Clinical indication: Condition or disease; Kidney or ureter condition; Calculus (stone) in ureter; Additional info: Follow-up right ureteral calculus, pelvic pain TECHNIQUE: Imaging protocol: XR of the abdomen. Views: Frontal supine view of the abdomen. 1 View. COMPARISON: CR XR KUB [id number] 01/16/2020 3:31 PM FINDINGS: Gastrointestinal tract: Mild colonic dilatation and prominent stool. Intraperitoneal space: 5 mm right pelvic calcification, correlating with 5 mm right UVJ calculus on earlier CT. Incomplete visualization of the superior most abdomen. Bones/joints: Unremarkable. XR/XR KUB [id number] IMPRESSION: 5 mm right pelvic calcification, correlating with 5 mm right UVJ calculus on earlier CT.
[2020-01-18] VITALS (9 sets, daily range): BP systolic 92–126; BP diastolic 60–78; PULSE 70–92; RESP 17–20; TEMP 36.5–37; O2SAT 96–99
[2020-01-18] MEDS: D5-NS 0.45% + KCL 20 mEq 20 MEQ/1,000 ML BAG 150 MEQ IV ×2 (03:42→09:29)
[2020-01-18] MEDS: topiramate 100 mg Tablet 200 MG PO (08:52)
--- NOTE | 2020-01-18 14:23 | PM.DCS ---
Discharge Providers Date of Admission: 01/16/20 16:45 Date of Discharge: January 18, 2020 Attending Provider at Admission: Herb Cowart MD Attending Provider at Discharge: Herb Cowart MD Primary Care Provider: Anthony Mendez MD Diagnoses at Discharge Discharge Diagnosis (1) Right distal ureteral calculus: Status: Acute (2) Acute cystitis without hematuria: Status: Acute Reason for Visit Reason for Visit: KIDNEY STONE Brief History: She was admitted to the hospital through my clinic when discovery of UTI associated with an obstructing right distal ureteral stone. She was having chills and fever at home. No evidence of sepsis. Hospital Course Discharge Summary: She was admitted through the office on 01/16/2020 for refractory symptoms related to a right obstructing distal ureteral stone in the face of acute cystitis. Was initiated on parenteral antibiotics. She continued to have fevers but no evidence of progression to sepsis. Lactate was normal. On 01/17/2020 she underwent cystoscopy, right ureteroscopy laser lithotripsy and stent placement with complete resolution of the stone. She was actually clinically improving at the time of the procedure and it was felt to be safe to perform the above manipulation with low risk in the face of the treated UTI. Postoperatively she did well. On postoperative day #1 she was eating well, voiding well afebrile with no evidence of infectious progression. Discharge in the afternoon of postoperative day #1 after antibiotic dose. Plans were to remove the stent in my office at the end of next week. Physical Exam Const: COMMON NORMALS: no acute distress, alert and well nourished GENERAL APPEARANCE: well kempt and well developed ORIENTATION/CONSCIOUSNESS: not confused HENMT: COMMON NORMALS: normocephalic and atraumatic HEAD & SCALP: normocephalic and atraumatic Resp: COMMON NORMALS: normal respiratory effort EFFORT & INSPECTION: No labored and No Actively coughing Neuro: SENSORIUM/ORIENTATION: Yes alert Psych: COMMON NORMALS: mental status grossly normal APPEARANCE: Yes grossly normal and Yes well kempt ATTITUDE: Yes calm and Yes engaged Skin: COMMON NORMALS: no rashes or lesions noted and no jaundice GENERAL SKIN EXAM: no rashes or lesions noted Discharge Data Data Completed and Pending: Completed Studies During Hospitalization Category Date Time Status XR KUB [id number] Rout ine Exams 01/17/20 18:06 Completed Pathology: Surgic al [PTH] Routine Pth 01/17/20 13:07 Completed Pending at discharge Category Date Time Status Basic Metabolic P ashwin Routine Lab 01/18/20 16:01 Ordered Blood Culture Sta t Lab 01/16/20 17:12 Results CBC Auto Diff [Co mplete Blood Count w/Auto] Routine Lab 01/18/20 16:05 Ordered Stone Analysis Ro utine Lab 01/17/20 12:55 Received Vitals: Last Vital Signs Temp 98.6 F 01/18/20 11:42 Pulse 86 01/18/20 11:42 Resp 20 H 01/18/20 11:42 BP 92/60 01/18/20 11:42 Pulse Ox 97 01/18/20 11:42 Discharge Plan Discharge Patient Disposition: Home, Self-Care Condition: Stable Prescriptions: New cefdinir 300 mg capsule 300 mg PO BID 10 Days Qty: 20 RF: 0 potassium citrate 15 mEq tablet extended release 15 meq PO BID Qty: 60 RF: 0 Continued ibuprofen 800 mg tablet 800 mg PO TID PRN (Reason: Pain) RF: 0 clonazepam 0.5 mg tablet 0.5 mg PO BID PRN (Reason: Anxiety) RF: 0 topiramate 200 mg tablet 200 mg PO BID RF: 0 hydrocodone-acetaminophen 5-325 mg tablet 1 tab PO Q6H PRN (Reason: pain) Qty: 20 RF: 0 ondansetron HCl [Zofran] 4 mg tablet 4 mg PO Q6H PRN (Reason: nausea and vomiting) Qty: 20 RF: 0 prednisone 20 mg tablet See Rx Instructions .ROUTE .COMPLEX RF: 0 sumatriptan succinate 50 mg tablet See Rx Instructions .ROUTE .COMPLEX RF: 0 No Action tamsulosin 0.4 mg capsule 0.4 mg PO DAILY Qty: 14 RF: 0 Discharge Orders: Discharge Order (Routine); Ordered 01/18/20 Ordered By: Herb Cowart Referrals: Herb Cowart MD [Physician] - 4-7 days (Cystoscopy stent removal on Tuesday or of next week.) Discharge Activity: Increase activity as tolerated Activity Restrictions/Additional Instructions: 1. Cefdinir and potassium citrate will be your new medications. Complete the antibiotic. Potassium citrate will be long-term. 2. We will plan on following up Tuesday or of next week for cystoscopy and stent removal. 3. Start increasing your fluid intake to try and produce at least 2 to 3 L of urine output per day for stone risk reduction. Discharge Attestations Time Spent in Discharge Care*: less than 30 min Quality Metrics Clinical Quality Measures During this hospital stay, did patient experience: None Coding Level of Care Code Acute Contact Printer Dry Film for Sanjiv Fwd Exam Detailed Diagnoses Right distal ureteral calculus N20.1 Acute cystitis without hematuria N30.00
[2020-01-18] MEDS: cefTRIAXone 2,000 MG in sodium chloride 0.9% (plus) 50 ML 100 MG IV (16:28)
[2020-01-18 16:57] LABS: Basophils % 0.4 %; Eosinophils # 0.1 10^3/uL (0.0-0.8); Eosinophils % 1.7 %; Hematocrit 35.6 % (37.0-47.0); Hemoglobin 12.1 g/dL (11.5-15.3); Mean Corpuscular Hemoglobin 30.9 pg (28.0-34.0); Mean Platelet Volume 11.2 fL (7.4-10.4); Monocytes # 0.6 10^3/uL (0.2-0.9); Monocytes % 10.6 %; Neutrophils # 3.65 10^3/uL (1.8-7.7); Neutrophils % 67.9 %; Nucleated Red Blood Cells % 0 %; Platelet Count 151 10^3/cmm (130-400); Red Blood Count 3.91 10^6/uL (4.1-5.3); Red Cell Distribution Width 11.8 % (12.1-15.1); White Blood Count 5.4 10^3/uL (4.0-10.0)
[2020-01-18 17:09] LABS: Anion Gap 12.6 (5-19); Blood Urea Nitrogen 4 mg/dL (6-20); Calcium 7.9 mg/dL (8.5-10.5); Carbon Dioxide 19 mmol/L (22-29); Chloride 108 mmol/L (98-107); Glomerular Filtration Rate 116.6 mL/min (90-130); Glucose 109 mg/dL (65-115); Osmolality Calculated 278 mOsm/kg (285-295); Potassium 3.6 mmol/L (3.5-5.1); Sodium 136 mmol/L (136-145)
== END 2020-01-18 17:30 | disposition home or self-care (01) | DRG 660 ==
LOC: ER 16:59 → MEDSURG 17:37
PROVIDERS: Family Medicine; Admitting Provider Urology; PCP Family Medicine; Visit Provider Urology
PROC: 0TJB8ZZ Inspection of Bladder, Via Natural or Artificial Opening Endoscopic (ICD-10-PCS; CPT 52000; principal; 2020-01-17 12:00)
PROC: 0T768DZ Dilation of Right Ureter with Intraluminal Device, Via Natural or Artificial Opening Endoscopic (ICD-10-PCS; 2020-01-17 12:00)
PROC: 0T768DZ Dilation of Right Ureter with Intraluminal Device, Via Natural or Artificial Opening Endoscopic (ICD-10-PCS; CPT 50605; 2020-01-17 12:00)
PROC: 0TJ98ZZ Inspection of Ureter, Via Natural or Artificial Opening Endoscopic (ICD-10-PCS; CPT 52351; 2020-01-17 12:00)
DX: N20.1 Calculus of ureter (principal); N30.00 Acute cystitis without hematuria; G43.909 Migraine, unspecified, not intractable, without status migrainosus
CPT/HCPCS: 12345; 36415; 74018; 76000; 80048; 80053; 82365; 83605; 85025; 87040; 88300; 96375; 99282; C1725; C2625; J0696; J1100; J2270; J2405; J2704; J3010; Q0162

== ENCOUNTER 2020-01-25 09:04 | Outpatient (CLI) | payer OTHER, SELFPAY ==
--- NOTE | 2020-01-25 09:15 | XR_ITS ---
WS: [id number] KUB, 01/25/2020 Clinical Data: KIDNEY STONE Comparison: KUB, 01/16/2020. Findings: No abnormal intraabdominal masses or calcifications are seen. There is no dilatated small bowel or ev idence of obstruction. There is a right ureteral catheter which extends from the region of the right renal pelvis into the b ladder. XR/XR KUB [id number] Impression: Satisfactory position of right ureteral catheter.
== END 2020-01-25 09:05 | disposition home or self-care (01) ==
PROVIDERS: PCP Family Medicine; Visit Provider Urology
DX: N20.0 Calculus of kidney (principal); Z96.0 Presence of urogenital implants
CPT/HCPCS: 74018; 81001

== ENCOUNTER 2021-01-26 06:34 | Outpatient (CLI) | payer OTHER, SELFPAY ==
--- NOTE | 2021-01-26 07:00 | XRR_ITS ---
PROCEDURE INFORMATION: Exam: XR Abdomen Exam date and time: 01/26/2021 7:00 AM Age: 30 years old Clinical indication: Condition or disease; Kidney or ureter condition; Other: Urolithiasis; Prior surgery TECHNIQUE: Imaging protocol: XR of the abdomen. Views: Frontal supine view of the abdomen. 1 View. COMPARISON: CR XR KUB [id number] 01/25/2020 9:16 AM FINDINGS: Tubes, catheters and devices: The right ureteral stent seen on previous study has been removed. Gastrointestinal tract: Normal. No bowel dilation. Organs: No calcifications are seen in the projection of the kidneys ureters or urinary bladder. Bones/joints: Unremarkable. XR/XR KUB [id number] IMPRESSION: No significant abnormality.
== END 2021-01-26 06:35 | disposition home or self-care (01) ==
PROVIDERS: PCP Family Medicine; Visit Provider Urology
DX: N20.9 Urinary calculus, unspecified (principal)
CPT/HCPCS: 74018; 81003

== ENCOUNTER → 2024-02-15 08:44 | Outpatient (BNVA) | payer OTHER, SELFPAY | PROVIDERS: PCP Family Medicine; Visit Provider Nurse Practitioner | DX: M25.572 Pain in left ankle and joints of left foot (principal); S82.62XA Displaced fracture of lateral malleolus of left fibula, initial encounter for closed fracture; S93.439A Sprain of tibiofibular ligament of unspecified ankle, initial encounter; W01.0XXA Fall on same level from slipping, tripping and stumbling without subsequent striking against object, initial encounter | CPT/HCPCS: 73610 ==

== ENCOUNTER 2024-02-15 10:19 | Outpatient (CLI) | payer OTHER, SELFPAY | END 2024-02-15 10:20 | disposition home or self-care (01) | LOC: SPT 10:20 | PROVIDERS: PCP Family Medicine; Visit Provider Nurse Practitioner | DX: Z46.89 Encounter for fitting and adjustment of other specified devices (principal); S82.832D Other fracture of upper and lower end of left fibula, subsequent encounter for closed fracture with routine healing; X58.XXXD Exposure to other specified factors, subsequent encounter | CPT/HCPCS: 97760; L4361 ==

== ENCOUNTER 2024-02-15 11:16 | Outpatient (CLI) | payer OTHER, SELFPAY ==
--- NOTE | 2024-02-15 12:00 | MR_ITS ---
WS: [id number] EXAMINATION: MR ankle LT wo con* [id number] ORDER DATE: 02/15/2024 11:20 AM HISTORY: left ankle injury TECHNIQUE: Axial proton density fat sat, axial T1, sagittal proton density, sagittal STIR, coronal T2 fat sat, and coronal T1 sequences performed. After contrast, axial T1 fat sat, coronal T1 fat sat, and sagittal T1 fat sat were performed. FINDINGS: Again seen is the oblique minimally displaced fracture of the distal LEFT fibula unchanged since the recent radiograph. Associated edema with minimal displacement. Fluid and soft tissue edema about the lateral aspect of the ankle and lateral malleolus. Small joint effusion. Tear of the anterior tibiofi bular ligament and posterior tibiofibular ligament with syndesmotic injury and widening. Anterior shiv ofibular ligament appears intact. Posterior talofibular ligament appears intact. Fluid in the anterol ateral gutter. Partial tear of the calcaneofibular ligament. Associated bone marrow edema involving the posterior medial tibial plafond and and medial malleolus. Deltoid ligament appears intact. Tear of the posterior intermalleolar ligament with syndesmotic injur y. Fluid and edema extending along the syndesmosis Distal Achilles is normal in appearance. Pes planus. No bone marrow signal in the talar dome. Tenosynovitis of the peroneal tendons. Tenosynovitis involving the flexor and extensor tendons. Susanne lomeli. MR/MR ankle LT wo con* [id number] IMPRESSION: 1. Minimally displaced fracture of the distal fibula with surrounding soft tis brianna edema described above. 2. Syndesmotic injury with widening of the syndesmosis. Ankle effusion. 3. Fluid in the anterolateral gutter with high-grade complete tear of the ante rior tibiofibular ligament and posterior tibiofibular ligament. Anterior talofi bular ligament appears intact. Suspected tear of the calcaneofibular ligament. 4. Bone marrow edema in the medial malleolus and posterior medial tibial plafo nd compatible with contusion. Deltoid ligament appears intact. 5. Tear of the posterior intermalleolar ligament with syndesmotic injury. Wide jose j of the syndesmosis posteriorly. 6. Pes planus. 7. Normal distal Achilles and plantar fascia.
== END 2024-02-15 11:17 | disposition home or self-care (01) ==
LOC: RAD 11:16
PROVIDERS: PCP Family Medicine; Visit Provider Nurse Practitioner
DX: M25.572 Pain in left ankle and joints of left foot (principal); S99.912A Unspecified injury of left ankle, initial encounter; M84.464A Pathological fracture, left fibula, initial encounter for fracture; M25.472 Effusion, left ankle; S83.62XA Sprain of the superior tibiofibular joint and ligament, left knee, initial encounter; Y99.9 Unspecified external cause status; R60.0 Localized edema; S90.02XA Contusion of left ankle, initial encounter
CPT/HCPCS: 73721

== ENCOUNTER 2024-02-16 10:21 | Day surgery (SDC) | payer OTHER, SELFPAY ==
[2024-02-16] VITALS (8 sets, daily range): BP systolic 108–122; BP diastolic 67–81; PULSE 78–99; RESP 16–17; TEMP 36.2–36.4; O2SAT 90–95; BMI 42.0
--- NOTE | 2024-02-16 11:01 | W.PM.OPSUD ---
Surgery/Procedure H&P Update DATE OF PROCEDURE: February 16, 2024 DATE H&P PERFORMED: 02/15/24 H&P UPDATE INFORMATION: I have reviewed H&P completed within last 30 days, I have examined patient prior to procedure, No changes to prior documentation and H&P is in [facility] EMR on date indicated PLANNED PROCEDURE: Operation Date: 02/16/24 12:00 Proposed Procedures p ORIF DISTAL FIBULA [id number], WITH SYNDESMOSIS FIXATION(Left) - Erica Richardson MD Related Problem List Diagnoses (1) Fracture of ankle, lateral malleolus, left, closed: Qualifiers: Encounter type: initial encounter Fracture alignment: displaced Qualified Code(s): S82.62XA - Displaced fracture of lateral malleolus of left fibula, initial encounter for closed fracture (2) Acute disruption of syndesmosis of ankle joint:
[2024-02-16] MEDS: sodium chloride 0.9% 1,000 ML 30 ML IV (11:08)
[2024-02-16] MEDS: scopolamine 1.5 Patch 1 PATCH TRANSDERMA (11:27)
[2024-02-16] MEDS: CELEcoxib 200 mg Capsule 400 MG PO (11:27)
[2024-02-16] MEDS: gabapentin 300 mg Capsule PO (11:27)
[2024-02-16] MEDS: acetaminophen 1,000 MG/100 ML PIGGYBACK 400 MG IV (11:28)
--- NOTE | 2024-02-16 12:03 | ANES.PREANE2 ---
Pre-Anesthetic Assessment Height/Weight: Height 1.63 m Weight 111.13 kg Operation Date: 02/16/24 12:00 Proposed Procedures p ORIF DISTAL FIBULA [id number], WITH SYNDESMOSIS FIXATION(Left) - Erica Richardson MD Familial anesthetic complications: none Was Beta Keith taken within 24 hours: N/A Was Clonidine taken within 24 hours: N/A Last intake: > 8hrs Social No alcohol and No tobacco Exam alert, oriented x 3, clear to auscultation bilaterally and regular rate & rhythm Airway Mallampati: Class I Dentition: full Anesthetic Plan ASA status: 1 Anesthesia: General and Regional (specify below) Risk of > 500 ml blood loss (7ml/kg in children): No Medications/Allergies Home Medications Medication Instructions Recorded Confirmed Last Taken Type clonazepam 0.5 mg tablet 0.5 mg PO BID PRN Anxiety 01/14/20 02/15/24 Unknown History ibuprofen 800 mg tablet 800 mg PO TID PRN Pain 01/14/20 02/15/24 02/15/24 14:30 History ondansetron HCl 4 mg tablet 4 mg PO Q6H PRN nausea and 01/14/20 02/15/24 01/16/20 Rx (Zofran) vomiting #20 tabs topiramate 200 mg tablet 200 mg PO BID 01/14/20 02/15/24 01/16/20 History sumatriptan succinate 50 mg tablet See Rx Instructions .Route .COMPLEX 01/16/20 02/15/24 Unknown History potassium citrate 15 mEq (1,620 15 meq PO BID #60 tabs 01/18/20 02/15/24 Unknown Rx mg) tablet,extended release cefdinir 300 mg capsule 300 mg PO BID PRN Chronic cystitis 01/26/21 02/15/24 Unknown History Cam Walker #1 ea 02/15/24 02/15/24 Unknown Rx Allergies Allergy/AdvReac Type Severity Reaction Status Date / Time No Known Allergies Allergy Verified 02/15/24 17:03 Current Medications Generic Name Dose Route Start Last Admin Trade Name Freq PRN Reason Stop Dose Admin Sodium Chloride 1,000 mls @ 30 mls/hr 02/16/24 11:00 02/16/24 11:08 Sodium Chloride 0.9% IV 02/17/24 10:59 30 mls/hr .Q24H JANESSA Administration PFSH Anesthesia Medical History Recurrent UTI On self treatment for recurrent acute cystitis episode Urolithiasis Acute cystitis without hematuria Right distal ureteral calculus Migraines Constipation Nephrolithiasis Surgical History No significant past surgical history Social History Smoking and tobacco/nicotine status: never used tobacco/nicotine Alcohol intake: current Alcohol intake frequency: holidays/special occasions only Marital status: Current occupational status: employed Data Anesthesia Cardiac Studies: No Data to Display
--- NOTE | 2024-02-16 12:03 | ANES.PROC ---
Anesthesia Procedures Procedure/Date: 02/16/24 Nerve Block ^: Nerve Block 1: Main Anesthesia: general anesthesia Time Out Performed: Yes Consent: requested by attending/covering physician, from patient, from other, risks and benefits reviewed and patient agrees to proceed Nerve block location: popliteal (L) Anesthesia monitors applied: pulse oximetry, EKG, BP cuff and oxygen Nerve block position: supine Anesthetic Used: ropivicaine 0.5% (30 ml) and with decadron (4 mg) Ultrasound used to: recognize landmarks Nerve Stimulator Used?: No Interscalene/Femoral BLK: 4 stimuplex 21 g needle used for position and inplane approach, visualize local anesthetic spread and no vascular puncture identified Injection: neg aspiration of heme Patient Tolerated Procedure: well Complications: none
[2024-02-16] MEDS: ceFAZolin 3,000 MG in sodium chloride 0.9% (100 ml) 100 ML 200 MG IV (12:52)
[2024-02-16] MEDS: ceFAZolin 1,000 mg SDV 1000 MG IRRIGATION (13:34)
[2024-02-16] MEDS: BUPivacaine 0.5% INJ 30 mL INJECTION (14:30)
--- NOTE | 2024-02-16 14:57 | XR_ITS ---
WS: [id number] XR ankle LT min 3V* [id number] REASON FOR EXAM: OR PICS FINDINGS: Plate and screw fixation of oblique fracture of the distal fibula at the level of the syndesmosis. Tr ansverse tibiofibular anchor. Surgical appliances are intact and in proper position and alignment. XR/XR ankle LT min 3V* [id number] IMPRESSION: Internal fixation of fibular fracture without abnormality.
--- NOTE | 2024-02-16 15:13 | PM.OP ---
Operative Report Date of procedure: February 16, 2024 Pre-op diagnosis: Left with syndesmotic disruption Post-op diagnosis: Left with syndesmotic disruption Post-op findings: Widening of the syndesmosis and osteopenic bone. Procedure done: Open reduction internal fixation left lateral malleolar fracture utilizing the [place] distal fibular plate with bone grafting utilizing [place] DBM plus paste with cancellous bone. Syndesmotic fixation using the Tandem Synchfix with #5 suture Implants: [place] distal fibular 3-hole plate, Tandem Synchfix with #5 suture Specimens removed/disposition: None Surgeon: Erica Richardson MD Air Traffic Instructor: Mikala Irby, nurse practitioner, who services were required for positioning, maintaining fracture reduction during the surgical procedure, implantation of components, and closing including splinting. Anesthesia: General (Intubated with preanesthesia block, ASA 1) Estimated blood loss (mL): 5 Tourniquet time (min): 80 (A 250 mmHg) IV fluids (mL): 800 Urine output (mL): 0 (No Andersen) Complications: None Findings: Displaced distal fibular fracture with syndesmotic disruption and soft bone of the distal fibula. Condition: stable Disposition: PACU (Then return to same-day surgery for discharge to home) Brief History: This 33-year-old woman presents today for definitive treatment of a left distal fibula fracture with syndesmotic disruption. This occurred in [facility] where she was splinted and referred to our office. She was seen in the office and discussion was undertaken regarding surgical intervention. The risks of not fixing a syndesmotic disruption were discussed in detail with the patient. She was consented for the surgical procedure and wished to proceed. Consents were signed and questions were answered at that time. Procedure: Patient was seen in the preoperative holding area and leg was marked. Patient was brought to the operating theater and placed on the operating room table. After undergoing adequate general intubated, ASA 1 anesthesia with preoperative block, the patient's left lower extremity was prepped and draped in usual fashion utilizing DuraPrep. The leg was draped free. Fluoroscopy was used throughout the surgical procedure. We did have a tourniquet high on the left lower extremity. This was elevated to 250 mmHg and total tourniquet time was 80 minutes. Tourniquet elevation followed exsanguination of the leg. A surgical pause was performed. At the time of the surgical pause we identified the site and side of surgery as well as the patient's identity and availability of equipment. We also confirmed appropriate administration of IV antibiotics. Following the above, an incision was made centering over the patient's lateral malleolar fracture. Prior to incision, plate length was chosen and the ankle was manipulated under anesthesia to determine the degree of syndesmotic disruption. There was noted to be some opening of this area, but there was also stability. The incision was continued proximally and distally as necessary to access the fracture and place a plate. We were able to reduce the fracture anatomically. The distal fibular plate was attached with standard technique using both locking and nonlocking screws. Through the appropriate screw hole, the syndesmotic fixation was placed uneventfully. This involved a K wire through the plate and out the medial cortex. An incision was then made medially over the pin so that we could place the appropriate fixation device. This device was placed into position and tightened. Additionally, [employer] DBM plus paste with cancellous bone was injected through the screw hole into the fracture site. Once the plate was appropriately attached, we irrigated the wound. We then closed the wound with 0 Vicryl in the fascial tissues, 2-0 Monocryl in the subcutaneous tissues, and the skin was closed with 4-0 Monocryl subcuticular. Following this, Steri-Strips were placed along with an OpSite. The wound was injected prior to Steri-Strip placement, and injection was also made into the ankle joint with ropivacaine plain. Following placement of the OpSite the area was wrapped with soft roll, a sugar-tong and posterior splint which was wrapped in place with an Trevon wrap. Tourniquet was released at 80 minutes at 250 mmHg. The patient will be discharged home to follow-up in my office as scheduled. Related Problem List Diagnoses (1) Fracture of ankle, lateral malleolus, left, closed: (2) Acute disruption of syndesmosis of ankle joint:
[2024-02-16] MEDS: ondansetron 2 mg/ML SDV 2 mL 4 MG IVP (15:55)
--- NOTE | 2024-02-16 16:45 | ANE.PACU2 ---
Inpatient post-anesthesia follow up: Airway intact: Yes Vital signs: Temperature 97.5 F Pulse Rate 78 Respiratory Rate 17 Blood Pressure 117/67 Pulse Oximetry 95 Oxygen Delivery Me thod Room Air Oxygen Flow Rate Fraction of Inspir ed Oxygen Hydration adequate: Yes Nausea and vomiting: No Pain level: 1 Mental status: Baseline
== END 2024-02-16 16:46 | disposition home or self-care (01) ==
PROVIDERS: PCP Family Medicine; Visit Provider Specialist
PROC: 0QSK04Z Reposition Left Fibula with Internal Fixation Device, Open Approach (ICD-10-PCS; CPT 27828; principal; 2024-02-16 11:50)
DX: S82.62XA Displaced fracture of lateral malleolus of left fibula, initial encounter for closed fracture (principal); S93.432A Sprain of tibiofibular ligament of left ankle, initial encounter; X50.1XXA Overexertion from prolonged static or awkward postures, initial encounter
CPT/HCPCS: 27792; 27829; 73610; 76000; C1713; J0131; J0690; J1100; J2250; J2405; J2704; J2795; J3010; J3490; J7030

== ENCOUNTER → 2024-02-29 12:53 | Outpatient (BNVA) | payer OTHER, SELFPAY | PROVIDERS: PCP Family Medicine; Visit Provider Nurse Practitioner | DX: S82.62XA Displaced fracture of lateral malleolus of left fibula, initial encounter for closed fracture (principal); S93.439A Sprain of tibiofibular ligament of unspecified ankle, initial encounter; X58.XXXA Exposure to other specified factors, initial encounter | CPT/HCPCS: 73610 ==

== ENCOUNTER → 2024-03-28 14:15 | Outpatient (BNVA) | payer OTHER, SELFPAY | PROVIDERS: PCP Family Medicine; Visit Provider Nurse Practitioner | DX: S82.62XD Displaced fracture of lateral malleolus of left fibula, subsequent encounter for closed fracture with routine healing (principal); X58.XXXD Exposure to other specified factors, subsequent encounter | CPT/HCPCS: 73610 ==

== ENCOUNTER → 2024-04-23 13:24 | Outpatient (BNVA) | payer OTHER, SELFPAY | PROVIDERS: PCP Family Medicine; Visit Provider Nurse Practitioner | DX: S82.62XD Displaced fracture of lateral malleolus of left fibula, subsequent encounter for closed fracture with routine healing; S93.432D Sprain of tibiofibular ligament of left ankle, subsequent encounter; X58.XXXD Exposure to other specified factors, subsequent encounter | CPT/HCPCS: 73610 ==

== ENCOUNTER 2024-04-23 14:27 | Outpatient (CLI) | payer OTHER, SELFPAY | END 2024-04-23 14:28 | disposition home or self-care (01) | LOC: SPT 14:30 | PROVIDERS: PCP Family Medicine; Visit Provider Nurse Practitioner | DX: Z46.89 Encounter for fitting and adjustment of other specified devices (principal); S93.432D Sprain of tibiofibular ligament of left ankle, subsequent encounter; X58.XXXD Exposure to other specified factors, subsequent encounter | CPT/HCPCS: L1902 ==

== ENCOUNTER → 2025-05-27 11:13 | Outpatient (BNVA) | payer OTHER, SELFPAY | PROVIDERS: PCP Family Medicine; Visit Provider Nurse Practitioner | DX: S82.62XA Displaced fracture of lateral malleolus of left fibula, initial encounter for closed fracture (principal); X58.XXXA Exposure to other specified factors, initial encounter | CPT/HCPCS: 73610 ==